=== PATIENT | male | born 1940 | race Caucasian/White ===

== ENCOUNTER 2016-07-02 15:52 | Inpatient (IN) | payer OTHER, MEDICARE ==
[~2016-07-02] VITALS: Ht 172.7 cm; Wt 73.6 kg
[2016-07-06] MEDS ORDERED: AMLO10 PO (10:30)
[2016-07-06] MEDS ORDERED: PRAV40TA2 PO (10:31)
[2016-07-06] MEDS ORDERED: BISO10TA2 PO (10:32)
[2016-07-06] MEDS ORDERED: MULT1TAB85 PO (10:34)
[2016-07-06] MEDS ORDERED: HYDR-3516 PO (10:34)
[2016-07-06] MEDS ORDERED: COLA100C3 PO (10:44)
[2016-07-20] MEDS ORDERED: PHENYLEPH/NS 1000 MCG/10 ML SYR IV ONE (07:40)
[2016-07-20] MEDS ORDERED: PROPOFOL 200 MG/20 ML AMP IV ONE (07:40)
[2016-07-20] MEDS ORDERED: ONDANSETRON HCL 4 MG/2 ML VIAL IV PUSH ONE (07:40)
[2016-07-20] MEDS ORDERED: NEOSTIGMINE 3 MG/3 ML SYR IV ONE (07:40)
[2016-07-20] MEDS ORDERED: ePHEDrine/NS 50 MG/5 ML SYR IV ONE (07:40)
[2016-07-20] MEDS ORDERED: LACTATED RINGER'S 1000 ML INJ 2,000 ML IV ONE (07:41)
[2016-07-20] MEDS ORDERED: LACTATED RINGER'S 1000 ML IV SCH (09:00)
[2016-07-20] MEDS ORDERED: SODIUM CHLORID 0.9% 500 ML IV SCH (09:00)
[2016-07-20 09:11] VITALS: BP 140/73; PULSE 67; RESP 16; TEMP 97.8; O2SAT 96
[2016-07-20] MEDS ORDERED: VANCOMYCIN HCL 1000 MG VIAL ONE (09:21)
[2016-07-20] MEDS ORDERED: CLINDAMYCIN PHOS 900 MG/6 ML VIAL ONE (09:21)
[2016-07-20] MEDS ORDERED: SODIUM CHLOR 0.9% 250 ML INJ 250 ML ONE (09:21)
[2016-07-20] MEDS ORDERED: SODIUM CHLORIDE 0.9% INJ 100 ML ONE (09:22)
[2016-07-20] MEDS ORDERED: METOPROLOL TARTRATE 25 MG TAB PO PRN (09:30)
[2016-07-20] MEDS ORDERED: CHLORHEXIDINE GLUCONATE 4% SOLN 120 ML BTL TOP SCH (09:30)
[2016-07-20] MEDS ORDERED: INSULIN HUMAN REGULAR 1,000 UNITS/10 ML VIAL SQ PRN (09:30)
[2016-07-20] MEDS ORDERED: CLINDAMYCIN 900 MG/NS 100 ML IV SCH ×2 (09:30)
[2016-07-20] MEDS ORDERED: VANCOMYCIN 1000 MG/NS 250 ML (for <70 kg) IV SCH ×2 (09:30)
[2016-07-20] MEDS ORDERED: MIDAZOLAM HCL 5 MG/5 ML VIAL ONE (10:08)
[2016-07-20] MEDS ORDERED: GENTAMICIN SULFATE 80 MG/2 ML VIAL ONE (10:31)
[2016-07-20] MEDS ORDERED: BUPIVACAINE HCL PF 0.5% 30 ML VIAL NB ONE (10:49)
[2016-07-20] MEDS ORDERED: GELATIN 12 MM/7 MM FOAM ONE (12:25)
--- NOTE | 2016-07-20 14:07 | PD.OP ---
cc: Tom Root MD Operative Report Date of Surgery: Jul 20, 2016 Preoperative Diagnosis: (1) Osteoarthritis of left shoulder Postoperative Diagnosis: (1) Osteoarthritis of left shoulder Procedure: Left total shoulder arthroplasty Implants used: Biomet comprehensive total shoulder system size 11 press-fit femoral stem, with a medium cemented glenoid with a porous glenoid post and a 46 x 18 modular humeral head Anesthesia: Gen. with preoperative interscalene block Surgeon: Tom Root [employer] Mill Roller(s): Mamie Torres PA-C ([place]) The surgical procedure was assisted by my physician's mobile unit assistant. Her presence was necessary throughout the case for manipulation and positioning of the surgical extremity. My PA was assisting me throughout the duration of this procedure. The skill set of the physician mobile unit assistant was medically necessary to complete this procedure. During the surgical case the assembler surgical garment was working at the back table and the physician mobile unit assistant was directly assisting me. Operation and Findings: Indications: This 75-year-old male has a long history of multiarticular osteoarthritis. He is undergone previous arthroplasties involving his hips and right shoulder. He's had progressive discomfort involving his left shoulder. He has been unresponsive to nonoperative measures. X-rays are consistent with advanced osteoarthritis with [id number] apposition, osteophyte formation and periarticular heterotopic ossification and subchondral sclerosis. He has severe pain and limitation of daily activity and given the alternatives of the treatment presents for total shoulder arthroplasty. Procedure and findings: The patient was taken to the operative suite and after undergoing an adequate level of general anesthesia preceded by an interscalene block in the holding area was placed in the beachchair position on the operating table. Preoperative antibiotics consisted of vancomycin 1 g IV and clindamycin 900 mg IV. The left shoulder was then prepped and draped in usual sterile fashion with alcohol and Hibiclens. A standard deltopectoral approach to the shoulder was made with incision extending from the coracoid process to the lateral deltoid. This was carried down through skin and subcutaneous tense tissue with a knife. Hemostasis was obtained with cautery. The deltopectoral interval was identified and developed. The cephalic vein was identified and retracted laterally. The conjoined tendon was identified. The subscapularis bursa was partially excised. A subscapularis tenotomy was made proximally centimeter half medial to the bicipital groove. The tendon was tagged. A joint effusion was evacuated. Upon entering the shoulder the joint was noted to be markedly arthritic with deformity of the humeral head and large osteophytes most notably in the axillary region. Soft tissue calcification was encountered in the rotator cuff and superior capsule. The capsule was released as the arm was external rotated. The exiting nerve was palpable and avoided. Osteophytes were removed. The head was dislocated anteriorly. A neck cut was made utilizing an osteotomy guide. Attention was first focused on the glenoid. The labrum was excised. Biceps tendon was released. The center of the glenoid was identified and marked. A threaded guidepin was advanced and a medium reamer utilized to ream the surface. Utilizing a drill guide the central drill hole and peripheral drill holes were made. A trial was placed and there was good fit with the medium implant. The wound was thoroughly irrigated with pulse lavage. Ostrander bone cement was prepared on the back table. After thorough drying was applied to the glenoid surface. The glenoid component was then seated and impacted in the place. All excess bone cement was removed. Once the cement had matured focus was attention on the proximal humerus. This was sequentially reamed and broached to an 11. With the [address] trial reductions were completed. The 46 x 18 head gave the best range of motion and stability. There was slight prominence of the tuberosity and therefore the head was to be offset superiorly. The wound was again thoroughly irrigated with pulse lavage. The 11 stem was then impacted in the place. After adjusting the humeral head offset it was impacted onto the proximal aspect of the stem with a Felton taper fit. Reduction was then accomplished and good range of motion and stability noted. The wound was again thoroughly irrigated. It was closed in layers utilizing #1 Ethibond on the subscap layers tenotomy with transosseous drill holes. There was a small defect in the superior cuff although the majority of the supraspinatus was intact. The deep tissues were closed with 0 Vicryl suture. A Hemovac drain was left in place. 2 Vicryl suture was used in the subcutaneous tissue and disha on the skin. Sterile dressings were applied. The patient was placed into a sling and swath, awakened, transferred to the hospital bed and taken to the recovery room in stable condition. Estimated blood loss: 400 cc Complications: None Tom Root MD Jul 20, 2016 14:06
[2016-07-20] MEDS ORDERED: Post-op Orders (for Pharmacy) MISC XX ONE (14:15)
[2016-07-20] MEDS ORDERED: ZOLPIDEM TARTRATE 5 MG TAB PO PRN (14:15)
[2016-07-20] MEDS ORDERED: POVIDONE IODINE 10% SOLN 118 ML BOTTLE TOPICAL PRN (14:15)
[2016-07-20] MEDS ORDERED: diphenhydrAMINE HCL 25 MG CAP PO PRN ×2 (14:15)
[2016-07-20] MEDS ORDERED: ACETAMINOPHEN 325 MG TAB PO PRN (14:15)
[2016-07-20] MEDS ORDERED: SODIUM CHLORIDE 0.9% FLUSH 5 ML FLUSH IVF PRN (14:15)
[2016-07-20] MEDS ORDERED: NALOXONE HCL 0.4 MG/ML AMP IV PRN (14:15)
[2016-07-20] MEDS ORDERED: MORPHINE SULFATE 8 MG/ML INJ IV PUSH PRN (14:15)
[2016-07-20] MEDS ORDERED: ONDANSETRON HCL 4 MG/2 ML VIAL IVP PRN (14:15)
[2016-07-20] MEDS ORDERED: oxyCODONE/ACETAMINOPHEN 5 MG/325 MG TAB PO PRN ×2 (14:15)
[2016-07-20] MEDS ORDERED: MISCELLANEOUS PHARMACY INFORMATION XX ONE (14:15)
[2016-07-20] MEDS ORDERED: MORPHINE SULFATE 30 MG/30 ML PCA IV SCH (14:15)
[2016-07-20] MEDS ORDERED: MISCELLANEOUS NURSING INFORMATION XX PRN (14:15)
[2016-07-20] MEDS ORDERED: MAGNESIUM HYDROXIDE SUSP 30 ML CUP PO PRN (14:15)
[2016-07-20] MEDS ORDERED: fentaNYL CITRATE 250 MCG/5 ML AMP ONE (14:23)
[2016-07-20] MEDS: D5-1/2 NS + KCL 20 MEQ INJ 1,000 ML IV SCH (15:10)
--- NOTE | 2016-07-20 15:34 | RADRPT ---
EXAM DATE/TIME: 07/20/2016 14:32 [facility] COMPARISON: No previous studies available for comparison. INDICATIONS : Postoperative left shoulder. MEDICAL HISTORY : None. SURGICAL HISTORY : None. ENCOUNTER: Subsequent ACUITY: 1 day PAIN SCORE: 5/10 LOCATION: Left shoulder FINDINGS: There is placement of a total shoulder prosthesis well seated with overlying surgical disha and johanny in in place. Small moderate air is noted in the soft tissues. CONCLUSION: Total shoulder prosthesis well seated Adan Marx MD on July 20, 2016 at 15:32 Board Certified Radiologist. This report was verified electronically.
--- NOTE | 2016-07-20 15:37 | PD.CONS ---
HPI Service [facility] Hospitalists Consult Requested By Dr. Root Reason for Consult Medical management Primary Care Physician Negro Yun MD Diagnoses: (1) Osteoarthritis of left shoulder (2) Hyperlipidemia (3) Hypertension History of Present Illness Condition is a 75-year-old male with history of osteoarthritis, hypertension, and hyperlipidemia. He is seen in PACU following left shoulder arthroplasty. Hospitalist consult was requested for medical management. The patient has no acute complaints. Pain is adequately controlled currently. He is still somewhat lethargic from anesthesia. Denies cough, dyspnea, chest pain. Review of Systems Constitutional: DENIES: Fever, Chills, Night Sweats Eyes: DENIES: Blurred vision, Vision loss Ears, nose, mouth, throat: DENIES: Hearing loss Respiratory: DENIES: Cough, Wheezing, Sputum production, Shortness of breath Cardiovascular: DENIES: Chest pain, Palpitations, Dyspnea on Exertion, Lower Extremity Edema Gastrointestinal: DENIES: Abdominal pain, Constipation, Diarrhea, Nausea, Vomiting Genitourinary: DENIES: Urinary frequency, Urinary incontinence, Urgency, Hematuria, Dysuria, Nocturia Musculoskeletal: COMPLAINS OF: Joint pain, DENIES: Muscle aches Integumentary: DENIES: Pruritus, Rash Hematologic/lymphatic: DENIES: Bruising Neurologic: DENIES: Headache Past Family Social History Allergies: Coded Allergies: Latex (Verified Allergy, Severe, BLISTERS, 07/20/16) Penicillin (Verified Allergy, Severe, 07/20/16) *MDRO Multi-Drug Resistant Organism (Verified Adverse Reaction, Unknown, MRSA, 07/20/16) 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 Rare alcohol use. Physical Exam Vital Signs Vital Signs Date Time Temp Pulse Resp B/P Pulse Ox O2 Delivery O2 Flow Rate FiO2 07/20/16 15:18 15 07/20/16 15:15 98.0 83 14 116/65 97 Nasal Cannula 3 07/20/16 15:00 64 15 121/65 98 Nasal Cannula 3 07/20/16 14:45 67 12 120/62 93 Nasal Cannula 3 07/20/16 14:30 76 14 117/62 92 Nasal Cannula 3 2/20/17 14:16 98.4 79 16 126/69 95 Nasal Cannula 3 07/20/16 09:11 97.8 67 16 140/73 96 Physical Exam GENERAL: Elderly male in no acute distress. HEENT: Normocephalic, atraumatic. Extraocular movements intact. No scleral icterus. No injection or drainage. CARDIOVASCULAR: Regular rate and rhythm without murmurs, gallops, or rubs. RESPIRATORY: Clear to auscultation. No wheezes, rales, or rhonchi. Breathing is non-labored. GASTROINTESTINAL: Abdomen soft, non-tender, nondistended. EXTREMITIES: No lower extremity edema. No calf tenderness. Left upper extremity in a sling. Surgical wound bandaged. PSYCH: Alert and oriented x 3. Laboratory Laboratory Tests Test 07/20/16 09:15 Blood Type A POSITIVE Antibody Screen NEGATIVE Assessment and Plan Assessment and Plan 1. Osteoarthritis, left shoulder: Status post left shoulder arthroplasty, POD # 0. Management per orthopedic surgery. Continue pain control, bowel regimen, occupational therapy. 2. Hypertension: Continue amlodipine. Monitor blood pressure. 3. Hyperlipidemia: Continue statin. 4. DVT prophylaxis: SCDs. Problem Qualifiers (1) Hypertension: Qualified Code: I10 - Essential hypertension Goi Kitchen MD Jul 20, 2016 15:37
[2016-07-20] MEDS ORDERED: PILL SPLITTER OTHER PRN (16:30)
[2016-07-20 17:38] VITALS: BP 118/59; PULSE 81; RESP 18; TEMP 98.6; O2SAT 94
[2016-07-20] MEDS: CLINDAMYCIN INJ 900 MG in SODIUM CHLORIDE 0.9% INJ 100 ML IV SCH (18:34)
[2016-07-20 20:01] VITALS: BP 115/59; PULSE 82; RESP 20; TEMP 98.7; O2SAT 92
[2016-07-20] MEDS ORDERED: BISOPROLOL FUMARATE 5 MG TAB PO SCH (21:00)
[2016-07-20] MEDS ORDERED: PRAVASTATIN SOD 40 MG TAB PO SCH (21:00)
[2016-07-20] MEDS ORDERED: HYDROCHLOROTHIAZIDE 25 MG TAB PO SCH (21:00)
[2016-07-20] MEDS: SODIUM CHLORIDE 0.9% FLUSH 5 ML FLUSH IVF SCH (21:00)
[2016-07-20] MEDS ORDERED: NON-FORMULARY DRUG (Bisoprolol-Hydrochlorothiazide 1 TAB) PO SCH (21:00)
[2016-07-20] MEDS: DOCUSATE SODIUM 50 MG/SENNA 8.6 MG TAB PO SCH (21:26)
[2016-07-20] MEDS: PCA - TOTAL MG MORPHINE DELIVERED PER SHIFT SCH (21:26)
[2016-07-21 00:01] VITALS: BP 129/60; PULSE 86; RESP 21; TEMP 98; O2SAT 92
[2016-07-21] MEDS: D5-1/2 NS + KCL 20 MEQ INJ 1,000 ML IV SCH (02:12)
[2016-07-21] MEDS: CLINDAMYCIN INJ 900 MG in SODIUM CHLORIDE 0.9% INJ 100 ML IV SCH ×2 (02:13→09:55)
[2016-07-21] MEDS: BENZOCAINE-MENTHOL (SUGAR FREE) 15 MG-3.6 MG LOZENGE BUCCAL PRN ×2 (02:18→10:00)
[2016-07-21 04:02] VITALS: BP 110/56; PULSE 88; RESP 20; TEMP 99.6; O2SAT 96
[2016-07-21] MEDS: PCA - TOTAL MG MORPHINE DELIVERED PER SHIFT SCH (04:21)
[2016-07-21 05:59] LABS: HEMATOCRIT 31.2 % (39.0-51.0); REVIEW FLAG FINAL
--- NOTE | 2016-07-21 07:27 | PD.ORT.PN ---
Subjective Post Op Day #: 1 Pain Scale: 4 Subjective Remarks The patient is awake alert and answers questions appropriately. His block was intact until several hours ago. He is having mild discomfort. He wants to go home today. Objective Vitals Vital Signs Date Time Temp Pulse Resp B/P Pulse Ox O2 Delivery O2 Flow Rate FiO2 07/21/16 04:02 99.6 88 20 110/56 96 07/21/16 00:01 98.0 86 21 129/60 92 07/20/16 20:01 98.7 82 20 115/59 92 07/20/16 19:07 Room Air 07/20/16 17:38 98.6 81 18 118/59 94 07/20/16 15:30 80 16 120/62 97 Nasal Cannula 2 07/20/16 15:18 15 07/20/16 15:15 98.0 83 14 116/65 97 Nasal Cannula 3 07/20/16 15:00 64 15 121/65 98 Nasal Cannula 3 07/20/16 14:45 67 12 120/62 93 Nasal Cannula 3 07/20/16 14:30 76 14 117/62 92 Nasal Cannula 3 07/20/16 14:16 98.4 79 16 126/69 95 Nasal Cannula 3 07/20/16 09:11 97.8 67 16 140/73 96 I/O 07/20/16 07/20/16 07/20/16 07/21/16 07/21/16 07/21/16 07:00 15:00 23:00 07:00 15:00 23:00 Intake Total 2000 ml 920 ml 787 ml Output Total 650 ml 550 ml 640 ml Balance 1350 ml 370 ml 147 ml Intake Oral 550 ml 360 ml IV Total 370 ml 427 ml Other 2000 ml Output Urine Total 250 ml 300 ml 600 ml Drainage Total 250 ml 40 ml Estimated Blood Loss 400 ml # Voids 2 # Bowel Movements 0 0 Result Diagram: 07/21/16 0521 Imaging Last 48 hours Impressions Shoulder X-Ray 07/20/16 0000 Signed Impressions: Service Date/Time: Wednesday, July 20, 2016 14:32 - CONCLUSION: Total shoulder prosthesis well seated Adan Marx MD Procedures Left total shoulder arthroplasty 07/20/16 Objective Remarks The dressing is dry and intact. The drain is in place. He is able to move his wrist and elbow freely. He has good capillary refill and sensation distally. Assessment & Plan Ortho Post Op Day #: 1 Problem List: (1) Osteoarthritis of left shoulder (2) Hyperlipidemia (3) Hypertension Assessment and Plan The patient's Orthopedic status is stable postoperative day #1 for discharge. He'll follow with the undersigned in approximately 1 week. Home health has been ordered. Tom Root MD Jul 21, 2016 07:27
[2016-07-21] MEDS ORDERED: AMBI5TAB PO (07:30)
[2016-07-21] MEDS ORDERED: OXYC1TAB63 PO (07:30)
--- NOTE | 2016-07-21 07:32 | HHI.FF ---
Face to Face Verification Diagnosis: (1) Osteoarthritis of left shoulder (2) Hyperlipidemia (3) Hypertension Physical Therapy Safety evaluation, Other (elbow and wrist range of motion exercises, pendulum exercises shoulder) Right LE Weight Bearing: WB as tolerated Right LE Range of Motion: Active ROM Left LE Weight Bearing: WB as tolerated Left LE Range of Motion: Active ROM Occupational Therapy Right UE Weight Bearing: WB as tolerated Right UE Range of Motion: Active ROM Left UE Weight Bearing: Non WB Left UE Range of Motion: Pendular Nursing Dressing Changes: Daily dressing change I have seen patient Juan Osorio on 07/21/16. My clinical findings support the need for the requested home health care services because: Deconditioned w/ increased weakness Limited ability to care for self I certify that my clinical findings support that this patient is homebound because: Post-op weakness Unsafe to leave home unassisted Tom Root MD Jul 21, 2016 07:32
--- NOTE | 2016-07-21 07:37 | HHI.DS ---
Discharge Summary Admission Date Jul 20, 2016 at 08:24 Discharge Date: Jul 21, 2016 Admitting Diagnosis Osteoarthritis left shoulder Diagnosis: (1) Osteoarthritis of left shoulder (2) Hyperlipidemia Diagnosis: Secondary (3) Hypertension Diagnosis: Secondary Procedures Left total shoulder arthroplasty 07/20/16 Brief History This is a 75 year old male patient with a long history of multiarticular osteoarthritis. He has had a right total shoulder arthroplasty and bilateral total hip arthroplasties. He's had progressive discomfort involving his left shoulder. X-rays reveal advanced osteoarthritis with [id number] apposition, large osteophyte formation, heterotopic ossification and subchondral sclerosis with slight deformity of the humeral head. His pain has been unresponsive to nonoperative measures and now severely limiting his activity and sleep. Given the alternatives of the treatment he presents for total shoulder arthroplasty. CBC/BMP: 07/21/16 0521 Significant Findings Laboratory Tests Test 07/21/16 05:21 Hemoglobin 10.7 GM/DL (13.0-17.0) Hematocrit 31.2 % (39.0-51.0) Imaging Last 48 hours Impressions Shoulder X-Ray 07/20/16 0000 Signed Impressions: Service Date/Time: Wednesday, July 20, 2016 14:32 - CONCLUSION: Total shoulder prosthesis well seated Adan Marx MD PE at Discharge The dressing is dry and intact. The drain is in place. He is able to move his wrist and elbow freely. He has good capillary refill and sensation distally. Hospital Course On the day of admission the patient was taken to the operating room where he underwent a left total shoulder arthroplasty. The patient tolerated the procedure well. For details of the operative procedure please see dictated operative note. The patient's postoperative x-ray revealed good positioning of the total shoulder arthroplasty. He had good pain control with a regional block. Once this wore off his pain was well controlled with medication. The patient wanted to be discharged on postoperative day #1. His postoperative hemoglobin was 10.7. He will be discharged with home health care nursing and physical therapy. He will follow with the undersigned in 1 week. Orders have been given for wound care and dressing changes. He was prescribed Percocet for pain and Ambien for sleep. The patient acknowledges full understanding of the plan of treatment and agrees to it. Pt Condition on Discharge: Good Discharge Disposition: Disch w/ Home Health Serv Discharge Instructions Diet Instructions: As Tolerated, No Restrictions Activities You Can Perform: Weight Bearing as Caren Activities to Avoid: Lifting/Bending Additional Activity Instruc.: May remove sling for elbow and wrist range of motion exercises. Pendulum exercises shoulder Tom Root MD Jul 21, 2016 07:37
[2016-07-21 08:04] VITALS: BP 117/61; PULSE 92; RESP 18; TEMP 97.9; O2SAT 94
[2016-07-21] MEDS ORDERED: MULTIVITAMINS/MINERALS THERAPEUTIC TAB PO SCH ×2 (09:00)
[2016-07-21] MEDS ORDERED: DOCUSATE SODIUM 100 MG CAP PO SCH (09:00)
--- NOTE | 2016-07-21 09:23 | HHI.PR ---
Subjective Remarks Follow-up hypertension. Patient reports adequate pain control. He is being discharged home today. Objective Vitals Vital Signs Date Time Temp Pulse Resp B/P Pulse Ox O2 Delivery O2 Flow Rate FiO2 07/21/16 08:04 97.9 92 18 117/61 94 07/21/16 04:02 99.6 88 20 110/56 96 07/21/16 00:01 98.0 86 21 129/60 92 07/20/16 20:01 98.7 82 20 115/59 92 07/20/16 19:07 Room Air 07/20/16 17:38 98.6 81 18 118/59 94 07/20/16 15:30 80 16 120/62 97 Nasal Cannula 2 07/20/16 15:18 15 07/20/16 15:15 98.0 83 14 116/65 97 Nasal Cannula 3 07/20/16 15:00 64 15 121/65 98 Nasal Cannula 3 07/20/16 14:45 67 12 120/62 93 Nasal Cannula 3 07/20/16 14:30 76 14 117/62 92 Nasal Cannula 3 07/20/16 14:16 98.4 79 16 126/69 95 Nasal Cannula 3 I/O 07/20/16 07/20/16 07/20/16 07/21/16 07/21/16 07/21/16 07:00 15:00 23:00 07:00 15:00 23:00 Intake Total 2000 ml 920 ml 787 ml Output Total 650 ml 550 ml 640 ml Balance 1350 ml 370 ml 147 ml Intake Oral 550 ml 360 ml IV Total 370 ml 427 ml Other 2000 ml Output Urine Total 250 ml 300 ml 600 ml Drainage Total 250 ml 40 ml Estimated Blood Loss 400 ml # Voids 2 # Bowel Movements 0 0 Result Diagram: 07/21/16 0521 Imaging Last Impressions Shoulder X-Ray 07/20/16 0000 Signed Impressions: Service Date/Time: Wednesday, July 20, 2016 14:32 - CONCLUSION: Total shoulder prosthesis well seated Adan Marx MD Objective Remarks General: No acute distress. Heart: Regular rate and rhythm. No murmur. Lungs: Clear to auscultation bilaterally. No wheezes, rales, or rhonchi. Breathing is nonlabored. Abdomen: Soft, nontender, nondistended. LUE in sling. Surgical wound bandaged on left shoulder. Extremities: No lower extremity edema. Psych: Alert and oriented. Procedures 07/20/16 left shoulder arthroplasty Urinary Catheter: No Vascular Central Line Catheter: No A/P Problem List: (1) Osteoarthritis of left shoulder ICD Code: M19.012 Status: Chronic (2) Hyperlipidemia ICD Code: E78.5 Status: Chronic (3) Hypertension ICD Code: I10 Status: Chronic Assessment and Plan 1. Osteoarthritis, left shoulder: Status post left shoulder arthroplasty, POD # 1. Management per orthopedic surgery. Continue pain control, bowel regimen, occupational therapy. 2. Hypertension: Continue amlodipine. Blood pressure is stable, well controlled. 3. Hyperlipidemia: Continue statin. 4. DVT prophylaxis: SCDs. Discharge Planning Discharge home today with home health care per orthopedic surgery. Problem Qualifiers (1) Hypertension: Qualified Code: I10 - Essential hypertension Gio Kitchen MD Jul 21, 2016 09:23
[2016-07-21] MEDS: DOCUSATE SODIUM 50 MG/SENNA 8.6 MG TAB PO SCH (09:52)
[2016-07-21] MEDS: SODIUM CHLORIDE 0.9% FLUSH 5 ML FLUSH IVF SCH (09:53)
[2016-07-21 12:04] VITALS: BP 134/70; PULSE 90; RESP 16; TEMP 98.1; O2SAT 95
== END 2016-07-21 14:24 | disposition home health service (06) | DRG 483 ==
LOC: HSDI 07-20 08:24 → N06A 07-20 15:46
PROVIDERS: ADMIT Orthopaedic Surgery Sports Medicine; ATTEND Orthopaedic Surgery Sports Medicine
PROC: 3E0T3CZ (ICD-10-PCS; 2016-07-20)
PROC: 0RRK0JZ Replacement of Left Shoulder Joint with Synthetic Substitute, Open Approach (ICD-10-PCS; principal; 2016-07-20 10:37)
DX: M19.012 Primary osteoarthritis, left shoulder (principal); M25.712 Osteophyte, left shoulder; I10 Essential (primary) hypertension; R73.03 Prediabetes; E78.5 Hyperlipidemia, unspecified; Z96.643 Presence of artificial hip joint, bilateral; Z88.0 Allergy status to penicillin; Z91.040 Latex allergy status
CPT/HCPCS: 73020; 85014; 85018; 86850; 86900; 86901; 87641; 94150; C1776; J1580; J2250; J2270; J2370; J2405; J2710; J3010; J3370; J3480; J7050; J7120

== ENCOUNTER → 2016-07-06 | Outpatient (CLI) | payer OTHER ==
[~2016-07-06] MED LIST: AMBI5TAB PO; AMLO10 PO; BISO10TA2 PO; COLA100C3 PO; HYDR-3516 PO; MULT1TAB85 PO; NAPR500T PO; OXYC1TAB63 PO; PRAV40TA2 PO
[2016-07-06 13:42] LABS: MRSA PCR POSITIVE (NEGATIVE); STAPH AUREUS PCR POSITIVE (NEGATIVE)
== END ==
LOC: CPRE 10:09
PROVIDERS: ATTEND Orthopaedic Surgery Sports Medicine
DX: Z01.812 Encounter for preprocedural laboratory examination (principal); Z01.818 Encounter for other preprocedural examination; Z79.01 Long term (current) use of anticoagulants; Z13.9 Encounter for screening, unspecified; Z96.60 Presence of unspecified orthopedic joint implant; M79.609 Pain in unspecified limb
CPT/HCPCS: 87640; 87641